=== PATIENT | female | born 1955 | race Caucasian/White ===

== ENCOUNTER 2020-03-27 13:20 | Outpatient (CLI) | payer MEDICARE, SELFPAY ==
--- NOTE | 2020-03-27 13:27 | USCV_ITS ---
Taylor Greco Age: 65 Gender: F : 1955 Exam Date: 03/27/2020 13:46 Ordering Phys: Deejay Araujo Technologist: Julian Hernandez Exam Location: [facility] – [place] Indication: MURMUR BP: 140 / 80 HR: 86 Rhythm: Sinus Technical Quality: Adequate MEASUREMENTS (Male / Female) Normal Values 2D ECHO LV Diastolic Diameter PLAX 3.7 cm 4.2 - 5.9 / 3.9 - 5.3 cm LV Systolic Diameter PLAX 2.6 cm IVS Diastolic Thickness 1.2 cm 0.6 - 1.0 / 0.6 - 0.9 cm IVS Systolic Thickness 1.5 cm LVPW Diastolic Thickness 1.1 cm 0.6 - 1.0 / 0.6 - 0.9 cm LVPW Systolic Thickness 1.8 cm LVOT Diameter 2.1 cm LV Ejection Fraction 2D Teich 57.2 % LV Ejection Fraction MOD 2C 77.2 % LV Ejection Fraction 2C AL 78.6 % LA Diameter 3.8 cm LA Width 3.0 cm LA Height 4.5 cm RA Width 4.3 cm RA Height 3.7 cm Aorta at Sinotubular Diameter 1.1 cm M-MODE LV Diastolic Diameter MM 5.3 cm 4.2 - 5.9 / 3.9 - 5.3 cm LV Systolic Diameter MM 2.9 cm LV Ejection Fraction MM Teich 76.3 % IVS Diastolic Thickness MM 1.0 cm 0.6 - 1.0 / 0.6 - 0.9 cm IVS Systolic Thickness MM 1.4 cm LVPW Diastolic Thickness MM 0.9 cm 0.6 - 1.0 / 0.6 - 0.9 cm LVPW Systolic Thickness MM 1.8 cm RV Diastolic Diameter MM 1.6 cm Aortic Annulus Diameter 3.0 cm LA Ao Ratio MM 1.3 MV E Point Septal Separation 0.9 cm DOPPLER AV Peak Velocity 154.0 cm/s LVOT Peak Velocity 97.0 cm/s AV Area Cont Eq vti 2.6 cm squared AV Area Cont Eq pk 2.2 cm squared MV Area PHT 5.0 cm squared Mitral E to A Ratio 0.5 MV E' Velocity 9.0 cm/s Mitral E to MV E' Ratio 7.8 Mitral E to LV E' Lateral Ratio 6.4 Mitral E to LV E' Septal Ratio 10.2 TR Peak Velocity 337.0 cm/s TR Peak Gradient 45.4 mmHg TV Peak E Velocity 89.0 cm/s Right Atrial Pressure 3.0 mmHg Pulmonary Artery Systolic Pressu 48.4 mmHg PV Peak Velocity 88.0 cm/s FINDINGS Left Ventricle Normal left ventricular cavity size. Normal left ventricular systolic function. No regional wall motion abnormalities. Left ventricular ejection fraction is estimated at 55 %. Grade I/IV diastolic dysfunction (abnormal relaxation filling pattern), normal to mildly elevated filling pressures. Right Ventricle The right ventricle is normal in size and function. RVSP could not be calculated due to incomplete tricuspid regurgitation velocity profile. Right Atrium The right atrium is normal in size. Left Atrium Mildly increased left atrial size. Mitral Valve Structurally normal mitral valve without significant stenosis or prolapse. There is no mitral regurgitation. Aortic Valve Moderate aortic valve calcification.No aortic valve stenosis. Mild aortic valve regurgitation. Tricuspid Valve Structurally normal tricuspid valve without significant stenosis or regurgitation. Pulmonic Valve Structurally normal pulmonic valve without significant stenosis. There is no pulmonic regurgitation. Pericardium Normal pericardium without effusion. Aorta Normal ascending aorta dimension. CONCLUSIONS 1-Normal left ventricular cavity size. Normal left ventricular systolic function. No regional wall motion abnormalities. Left ventricular ejection fraction is estimated at 55 %. Grade I/IV diastolic dysfunction (abnormal relaxation filling pattern), normal to mildly elevated filling pressures. 2-The right ventricle is normal in size and function. RVSP could not be calculated due to incomplete tricuspid regurgitation velocity profile. 3-Mildly increased left atrial size. 4-Moderate aortic valve calcification.No aortic valve stenosis. Mild aortic valve regurgitation. 5-There is no pericardial effusion. 6-Right atrial pressure is around 5 mm of mercury. 7-There are no prior echocardiogram studies to compare. Vinicius Chawla MD (Electronically Signed) Final Date: 27 March 2020 20:09 S
== END 2020-03-27 13:21 | disposition home or self-care (01) ==
LOC: US 13:23
PROVIDERS: PCP Physician Assistant Medical; Visit Provider Physician Assistant Medical
DX: R01.1 Cardiac murmur, unspecified (principal); E78.2 Mixed hyperlipidemia; I35.1 Nonrheumatic aortic (valve) insufficiency
CPT/HCPCS: 93306

== ENCOUNTER → 2022-01-21 14:11 | Outpatient (BNVA) | payer MEDICARE, SELFPAY | PROVIDERS: PCP Physician Assistant; Visit Provider Internal Medicine | DX: I73.9 Peripheral vascular disease, unspecified (principal); I10 Essential (primary) hypertension; R07.9 Chest pain, unspecified; F17.200 Nicotine dependence, unspecified, uncomplicated; R00.0 Tachycardia, unspecified | CPT/HCPCS: 93005; 99204 ==

== ENCOUNTER 2022-05-13 10:31 | Outpatient (CLI) | payer MEDICARE, SELFPAY ==
--- NOTE | 2022-05-13 10:15 | USCV_ITS ---
Taylor Greco Age: 67 Gender: F : 1955 Exam Date: 05/13/2022 10:53 Ordering Phys: Ted Lockett M.D ([email or web address]) Technologist: DARON [place] [facility] [place]: MITRAL VALVE DISEASE BP: 130 / 64 HR: 86 Rhythm: Sinus Technical Quality: Poor secondary to COPD MEASUREMENTS (Male / Female) Normal Values 2D ECHO LVOT Diameter 2.0 cm LV Ejection Fraction MOD 2C 62.1 % LV Ejection Fraction 2C AL 64.0 % LA Diameter 3.0 cm LA Width 3.4 cm LA Height 4.4 cm RA Width 3.6 cm RA Height 4.3 cm Aorta at Sinotubular Diameter 2.1 cm IVC Diameter 1.7 cm M-MODE Aortic Annulus Diameter 2.5 cm LA Ao Ratio MM 1.1 DOPPLER AV Peak Velocity 171.7 cm/s LVOT Peak Velocity 110.0 cm/s AV Area Cont Eq vti 2.5 cm squared AV Area Cont Eq pk 2.0 cm squared MV Peak Velocity 116.0 cm/s MV Area PHT 7.9 cm squared Mitral E to A Ratio 0.5 MV E' Velocity 28.5 cm/s Mitral E to MV E' Ratio 8.7 Mitral E to LV E' Lateral Ratio 7.3 Mitral E to LV E' Septal Ratio 11.0 TR Peak Velocity 211.7 cm/s TR Peak Gradient 17.9 mmHg TR Mean Velocity 163.6 cm/s TR Mean Gradient 11.6 mmHg TR Velocity Time Integral 59.3 cm TV Peak E Velocity 39.0 cm/s Right Atrial Pressure 3.0 mmHg Pulmonary Artery Systolic Pressu 20.9 mmHg FINDINGS Left Ventricle Left ventricle is normal in size. LV systolic function is normal with EF of 60 to 65%. No regional wall motion abnormalities are seen. Grade 1 diastolic dysfunction Right Ventricle RV is normal in size and function Right Atrium Normal in size Left Atrium Normal in size Mitral Valve Structurally normal mitral valve. Mild mitral valve regurgitation Aortic Valve Structurally normal aortic valve. No significant stenosis seen. Moderate aortic regurgitation Tricuspid Valve Mild tricuspid regurgitation. Insufficient TR jet to calculate RVSP Pulmonic Valve Not well-visualized Pericardium Normal Aorta Normal in size IVC Appears to be normal CONCLUSIONS LV systolic function is normal with EF of 60 to 65%. Grade 1 diastolic dysfunction Mild mitral regurgitation Moderate aortic regurgitation Mild tricuspid regurgitation Compared to prior echocardiogram from 03/27/2020, aortic regurgitation has progressed and is moderate now Ted Lockett MD (Electronically Signed) Final Date: 21 May 2022 17:43 S
--- NOTE | 2022-05-13 11:00 | CT_ITS ---
WS: [id number] CT ANGIOGRAPHY OF THE ABDOMINAL AORTA WITH RUNOFF TO THE ANKLES HISTORY: Mitral valve disease TECHNIQUE: Arterial injection is performed during imaging to evaluate the aorta and runoff vessels to the ankles. MIP and volume rendering imaging has also been performed. All images are reviewed. All C T scans at [facility] use at least one of these dose optimization techniques: automated exposu re control; mA and/or kV adjustment per patient size (includes targeted exams where dose is matched t o clinical indication); or iterative reconstruction. Contrast: Omnipaque 350; 95 mL IV. DLP: 812.24 mGy.cm COMPARISON: None available. Chronic emphysema at the lung bases. Heart size is normal. Small hiatal hernia. Abdominal aorta: Extensive atherosclerotic plaque throughout the abdominal aorta increasing below the level of the renal arteries. No aneurysm. Very minimal narrowing of the lumen towards the bifurcatio n. Calcified plaque and intimal thickening. Small amount of plaque at the origins of the celiac axis and SMA. Slightly greater plaque within the proximal SMA with stenosis approaching 50%. Mild atherosc lerosis renal arteries. MELINA is patent. RIGHT lower extremity arterial system: Extensive calcified plaque throughout the common, internal and external iliac arteries. Heavily diseased internal iliac artery. High-grade stenosis origin of the R IGHT SFA approaching 90%. Small caliber proximal SFA with complete occlusion in the proximal thigh. R econstitution near Efrain's canal. Calcification and plaque through the popliteal artery. Anterior ti bial artery is intermittently visualized. Intermittent visualization of opacification of the ankle. P oor runoff to the ankle. LEFT lower extremity arterial system: Patent common iliac artery with calcified plaque and intimal th ickening. More heavily diseased internal iliac artery. Plaque continues into the SFA with stenosis ne ar 50% proximal thigh. Deep profundas intact. Near complete occlusion mid SFA with immediate reconsti tution. Small caliber SFA through Efrain's canal. Small caliber vessels to the ankle. Normal size spleen and liver. No mass is identified. Normal gallbladder. Mildly atrophic pancreas. No rmal RIGHT adrenal gland. Hyperplasia and thickening of the LEFT adrenal gland. LEFT adrenal gland me asures 2.0 x 1.5 cm. Kidneys are normally perfused. Cyst lower pole RIGHT kidney measures 2.3 cm. No GI tract obstruction. No ascites or adenopathy is identified. Fecal retention and impaction at the re ctum. CT/CT angio abd aorta runof [id number] IMPRESSION: 1. Moderate atherosclerotic plaque throughout the abdominal aorta. No aneurysm or stenosis. 2. High-grade stenosis origin RIGHT SFA near 90%. 3. Complete occlusion proximal RIGHT SFA. Reconstitution near Efrain's canal. 4. LEFT SFA stenosis mid thigh 50%. 5. Near complete occlusion mid SFA, greater than 90% with immediate reconstitu tion. 6. RIGHT anterior tibial artery is intermittently visualized. May be due to st enosis or delay contrast opacification. 7. Small caliber arterial runoff to the LEFT ankle but the arteries are patent . 8. Moderate atherosclerosis proximal SMA. Calcified plaque with stenosis appro aching 50%. 9. LEFT adrenal gland hyperplasia, suspect underlying mass which is probably a n adenoma. Cannot characterize further as contrast was given for this examinati on.
[2022-05-13 11:23] LABS: Blood Urea Nitrogen 15 mg/dL (8-23); Glomerular Filtration Rate 83.2 mL/min (90-130)
[2022-05-13] MEDS: iohexol 350 mg/mL 100 mL Btl IV (11:41)
== END 2022-05-13 10:32 | disposition home or self-care (01) ==
PROVIDERS: PCP Physician Assistant; Visit Provider Internal Medicine
DX: I05.9 Rheumatic mitral valve disease, unspecified (principal); E27.8 Other specified disorders of adrenal gland; I70.8 Atherosclerosis of other arteries
CPT/HCPCS: 75635; 82565; 84520; 93306

== ENCOUNTER → 2022-05-16 10:13 | Outpatient (BNVA) | payer MEDICARE, SELFPAY | PROVIDERS: PCP Physician Assistant; Visit Provider Internal Medicine | DX: I73.9 Peripheral vascular disease, unspecified (principal); I10 Essential (primary) hypertension; F17.200 Nicotine dependence, unspecified, uncomplicated | CPT/HCPCS: 99214 ==

== ENCOUNTER → 2022-08-22 09:30 | Outpatient (BNVA) | payer MEDICARE, SELFPAY | PROVIDERS: PCP Physician Assistant; Visit Provider Internal Medicine | DX: I73.9 Peripheral vascular disease, unspecified (principal); R07.9 Chest pain, unspecified; I10 Essential (primary) hypertension; F17.200 Nicotine dependence, unspecified, uncomplicated | CPT/HCPCS: 99214 ==

== ENCOUNTER 2022-10-08 11:39 | Outpatient (CLI) | payer MEDICARE, SELFPAY ==
--- NOTE | 2022-10-08 11:59 | MM_ITS ---
WS: [id number] VIEWS: MLO and CC views both breasts. 3D digital tomosynthesis is also included in this exam. No comparisons. Findings: There was no sign of mass, architectural distortion or suspicious calcification in either breast. Th e breasts are homogeneously dense MM/[place] [id number] Impression: BI-RADS: 2-Benign FOLLOW-UP: 1 Year Follow-up This mammogram was also analyzed by the Computer Aided Detection System R2 Imag e Cloth Washer Operator.
== END 2022-10-08 11:40 | disposition home or self-care (01) ==
PROVIDERS: PCP Physician Assistant; Visit Provider Physician Assistant
DX: Z12.31 Encounter for screening mammogram for malignant neoplasm of breast (principal)
CPT/HCPCS: 77063; 77067

== ENCOUNTER → 2022-10-31 10:59 | Outpatient (BNVA) | payer MEDICARE, SELFPAY | PROVIDERS: PCP Physician Assistant; Visit Provider Nurse Practitioner Family | DX: I10 Essential (primary) hypertension (principal); F17.200 Nicotine dependence, unspecified, uncomplicated | CPT/HCPCS: 93005; 99213 ==

== ENCOUNTER → 2023-03-19 11:57 | Outpatient (BNVA) | payer MEDICARE, SELFPAY | PROVIDERS: PCP Physician Assistant; Visit Provider Internal Medicine | DX: R07.9 Chest pain, unspecified (principal); I73.9 Peripheral vascular disease, unspecified; I10 Essential (primary) hypertension; F17.200 Nicotine dependence, unspecified, uncomplicated | CPT/HCPCS: 99214 ==

== ENCOUNTER 2023-11-19 09:59 | Outpatient (CLI) | payer MEDICARE, SELFPAY ==
--- NOTE | 2023-11-19 10:00 | MM_ITS ---
WS: [id number] BILATERAL SCREENING DIGITAL TOMOSYNTHESIS MAMMOGRAM WITH CAD HISTORY: SCREENING COMPARISON: 10/08/2022 Bilateral CC and MLO views with tomosynthesis and synthetic mammography submitted. Computer aided det ection analyzed. Breast composition: There are scattered areas of fibroglandular density. No suspicious masses, microc alcifications or architectural distortion. IMPRESSION: MM/[place] [id number] BI-RADS: 1-Negative FOLLOW UP: 1 Year Follow-up
== END 2023-11-19 10:00 | disposition home or self-care (01) ==
LOC: MOBLMAM 10:08
PROVIDERS: PCP Nurse Practitioner Family; Visit Provider Nurse Practitioner Family
DX: Z12.31 Encounter for screening mammogram for malignant neoplasm of breast (principal)
CPT/HCPCS: 77063; 77067

== ENCOUNTER → 2023-12-17 12:57 | Outpatient (BNVA) | payer MEDICARE, SELFPAY | PROVIDERS: PCP Nurse Practitioner Family; Visit Provider Internal Medicine | DX: R07.9 Chest pain, unspecified (principal); I73.9 Peripheral vascular disease, unspecified; I10 Essential (primary) hypertension; F17.200 Nicotine dependence, unspecified, uncomplicated | CPT/HCPCS: 99214 ==